=== PATIENT | male | born 1980 | race Caucasian/White ===

== ENCOUNTER 2016-09-03 18:30 | Inpatient (IN) | payer OTHER ==
[~2016-09-03] VITALS: Ht 172.7 cm; Wt 80.9 kg
--- NOTE | 2016-09-08 14:16 | CONS ---
DATE OF ADMISSION: 09/10/2016 DATE OF CONSULTATION: TYPE OF CONSULTATION: Preoperative internal medicine consultation. REASON FOR ADMISSION: He is being admitted on 09/10/[address] Marti for planned left-sided L5- S1 microdiskectomy. HISTORY OF PRESENT ILLNESS: This is an otherwise healthy 36-year-old gentleman who has been having a several year history of left-sided sciatica and ultimately is to undergo definitive surgery with Archie Marti for planned left-sided L5-S1 microdiskectomy. For the details of his spine history, please see the full evaluation per Dr. Marti. Medically th e patient denies any significant past medical history, no history of hypertension, diabetes, asthma, hepatitis, or any cardiopulmonary disease. He has had no hospitalizations, no recent fevers, chill s or sweats. He is a former smoker but it has been greater than 3 years since his last cigarette. Erick hardy feels well. PAST MEDICAL HISTORY: Please see full dictated problem list. ALLERGIES: HE HAD A REACTION TO ORAL STEROIDS. HABITS: Tobacco: None. Alcohol: None. CURRENT MEDICATIONS: Percocet 5/325 1 p.o. q.6h. p.r.n. REVIEW OF SYSTEMS: Entirely unremarkable as noted above. PHYSICAL EXAMINATION: GENERAL: Fit-appearing gentleman in no acute distress. VITAL SIGNS: Afebrile, blood pressure 124/78, heart rate 72 and regular, respirations are 12 and un labored. SKIN: No rash. HEAD: Normocephalic, atraumatic. EYES: Pupils are equal, round, reactive. Extraocular movements are full. Sclerae are anicteric. PHARYNX: No lesions. NECK: JVP is not distended. No adenopathy or thyromegaly. Carotids are 2+. BACK: No CVAT. LUNGS: Clear. HEART: S1, S2, regular rate and rhythm, no murmurs. GASTROINTESTINAL: The abdomen is soft and nontender. There is no organomegaly or masses. EXTREMITIES: No cyanosis, clubbing or edema. Distal pulses are intact. LABORATORY DATA: See enclosed. PROBLEM LIST: 1. Sciatica, left side for planned L5-S1 microdiskectomy. 2. Remote history of tobacco use, asymptomatic. RECOMMENDATIONS: The patient is medically cleared for his planned surgery. Dictated By: KARLA GARY MD MM/NTS Conf#: [id number] DID#: [id number]
[2016-09-09 10:57] VITALS: BMI 27.8
[2016-09-10] VITALS (33 sets, daily range): BP systolic 104–146; BP diastolic 56–94; PULSE 72–108; RESP 8–20; Ht 172.7 cm; Wt 80.9 kg
[2016-09-10] MEDS ORDERED: CEFAZOLIN 2 GM/50 ML (PMX) 50 ML IVPB ONE (05:00)
[2016-09-10] MEDS ORDERED: ROCURONIUM 50 MG INJ ONE (06:36)
[2016-09-10] MEDS ORDERED: PROPOFOL 20 ML ONE (06:36)
[2016-09-10] MEDS ORDERED: FENTAnyl 50 MCG/ML VIAL ONE (06:36)
[2016-09-10] MEDS ORDERED: SUCCINYLCHOLINE CHLORIDE 100 MG/5 ML SYG IV ONE (06:36)
[2016-09-10] MEDS ORDERED: ONDANSETRON 4 MG INJ ONE (06:36)
--- NOTE | 2016-09-10 06:45 | HPN ---
Date/Time of Note Date/Time of Note DATE: 09/10/16 TIME: 06:45 Interval H&P Admission Note Pt. seen H&P reviewed: No system changes JAMES STOKES MD September 10, 2016 06:45
[2016-09-10] MEDS ORDERED: POLYMYXIN/BACITRACIN 1L IRRIG ONE (06:55)
[2016-09-10] MEDS ORDERED: THROMBIN 5000 UNIT VIAL ONE (06:55)
[2016-09-10] MEDS ORDERED: GELATIN SIZE 100 SPONGE ONE (06:55)
[2016-09-10] MEDS ORDERED: BUPIVACAINE 0.25% (MPF) 10 ML 10 ML VIAL ONE (06:55)
[2016-09-10] MEDS ORDERED: hydrALAzine 20 MG INJ IV PRN (08:00)
[2016-09-10] MEDS ORDERED: ONDANSETRON 4 MG INJ IV PRN ×2 (08:00→09:00)
[2016-09-10] MEDS ORDERED: MEPERIDINE 25 MG INJ IV PRN (08:00)
[2016-09-10] MEDS ORDERED: HYDROmorphONE (0.2 MG/ML) 10ML SYG IV PRN ×2 (08:00)
[2016-09-10] MEDS ORDERED: LABETALOL HCL 20MG INJ IV PRN (08:00)
[2016-09-10] MEDS ORDERED: FENTAnyl 50 MCG/ML VIAL IV PRN (08:00)
[2016-09-10] MEDS: LACTATED RINGER'S 1,000 ML IV* SCH ×3 (08:38→08:40)
--- NOTE | 2016-09-10 08:44 | OPR ---
Date/Time of Note Date/Time of Note DATE: 09/10/16 TIME: 08:41 Operative Report Preoperative Diagnosis Herniated disc L5-S1 on the left Postoperative Diagnosis Same Operation Performed Lumbar hemilaminotomy L5 on the left Lumbar microdiscectomy L5-S1 the left Medial facetectomy and foraminotomy L5-S1 on the left Cosmetic wound closure (2.6 cm) Lateral localizing lumbar radiographs (2) Intraoperative nerve monitoring (60 minutes) Surgeon: JAMES STOKES MD state tested nursing assistant: R[employer] PA[employer]ING Anesthesia: general Anesthesiologist: MELVINA CUEVAS MD Estimated Blood Loss: 0 - 10 ml's Specimens Disc material L5-S1 Tubes/Drains 2 medium Hemovac drains employed Complications: None Pt Condition Post Procedure: stable Disposition: PACU Operative\Procedure Findings A moderate left paracentral herniation at L5-S1 was confirmed. JAMES STOKES MD September 10, 2016 08:44
[2016-09-10] MEDS: FENTAnyl 50 MCG/ML VIAL IV PRN ×2 (08:49→08:55)
[2016-09-10] MEDS: HYDROmorphONE (0.2 MG/ML) 10ML SYG IV PRN ×2 (08:54→09:22)
[2016-09-10] MEDS ORDERED: ACETAMINOPHEN 325 MG TAB PO PRN (09:00)
[2016-09-10] MEDS ORDERED: DIAZEPAM 5 MG TAB PO PRN (09:00)
[2016-09-10] MEDS ORDERED: CEPASTAT LOZENGE MT PRN (09:00)
[2016-09-10] MEDS ORDERED: TRIMETHOBENZAMIDE 100 MG/ML VIAL IM PRN (09:00)
[2016-09-10] MEDS ORDERED: DIPHENHYDRAMINE 50 MG CAP PO PRN (09:00)
[2016-09-10] MEDS ORDERED: HYDROCODONE/APAP (5/325) TAB PO PRN (09:00)
[2016-09-10] MEDS ORDERED: DIAZEPAM 5 MG/ML SYG IM PRN (09:00)
[2016-09-10] MEDS ORDERED: NACL 0.9% 3 ML SYG IV SCH (09:00)
[2016-09-10] MEDS ORDERED: PROCHLORPERAZINE 10 MG TAB PO PRN (09:00)
[2016-09-10] MEDS ORDERED: AL HYDROX/MG HYDROX/SIMETH 30 ML CUP PO PRN (09:00)
[2016-09-10] MEDS ORDERED: ZOLPIDEM 5 MG TAB PO PRN (09:00)
[2016-09-10] MEDS ORDERED: BETHANECHOL 25 MG TAB PO PRN (09:00)
[2016-09-10] MEDS ORDERED: NALOXONE (0.4 MG/ML) INJ IV PRN (09:00)
[2016-09-10] MEDS: HYDROmorphONE 0.2 MG/ML PCA IV SCH (09:14)
--- NOTE | 2016-09-10 09:57 | RADRPT ---
PROCEDURE: Intraoperative XR. CLINICAL INDICATION: Intraoperative radiograph during lumbar microdiskectomy.. TECHNIQUE: Spot intraoperative lateral lumbar x-ray image was provided. The images were reviewed on a high-resolution PACS workstation. COMPARISON: None available FINDINGS: Spot intraoperative lateral lumbar view were provided during lumbar microdiskectomy. The images dem onstrate metallic probe at the level of L4-5. IMPRESSION: 1. Spot intraoperative lateral lumbar view during lumbar microdiskectomy were provided. 2. Please see operative report of the same day for further information. RPTAT: DD .Patrick Orozco MD, Date Time Electronically viewed and signed by .Patrick Orozco MD, on 09/10/2016 09:57 .S/
--- NOTE | 2016-09-10 09:58 | RADRPT ---
PROCEDURE: Intraoperative XR. CLINICAL INDICATION: Intraoperative radiograph during lumbar microdiskectomy. TECHNIQUE: Spot intraoperative lateral lumbar x-ray image was provided. The images were reviewed on a high-resolution PACS workstation. COMPARISON: None available FINDINGS: Spot intraoperative lateral lumbar view were provided during lumbar microdiskectomy. The images dem onstrate instrumentation at the level of L5-S1. There are mild anterior osteophytes L5-S1 with mild disc-space narrowing. IMPRESSION: 1. Spot intraoperative lateral lumbar view during lumbar microdiskectomy were provided. 2. Please see operative report of the same day for further information. ARPTAT: DD .Patrick Orozco MD, MD Date Time Electronically viewed and signed by .Patrick Orozco MD, on 09/10/2016 09:58 .S/
--- NOTE | 2016-09-10 10:28 | OPR ---
DATE OF OPERATION: 09/10/2016 PREOPERATIVE DIAGNOSIS: Herniated disk, L5-S1 on the left. POSTOPERATIVE DIAGNOSIS: Herniated disk, L5-S1 on the left. OPERATION PERFORMED: 1. Left hemilaminotomy, L5. 2. Microdiskectomy, L5-S1 on the left. 3. Medial facetectomy and foraminotomy, L5-S1 on the left. 4. Cosmetic wound closure (2.6 cm). 5. Lateral localized lumbar radiographs (2). 6. Intraoperative nerve monitoring (60 minutes). SURGEON: Alfonso Marti MD TRUCK PACKER: YANG Sanchez ANESTHESIA: General endotracheal. ANESTHESIOLOGIST: Constantino Palma MD ESTIMATED BLOOD LOSS: 10 mL-none replaced. DRAINS: Two medium Hemovac drains employed. COMPLICATIONS: None. PERTINENT HISTORY AND PHYSICAL: This is a 36-year-old male who sustained an injury to his back in t he course of his employment on 03/01/2013. He has had extensive care since that time, has remained symptomatic with back and left leg pain which has been unrelieved by conservative management. He daniel s undergone a number of diagnostic studies including an MRI of the lumbar spine, which demonstrated herniation of the L5-S1 disk centrally and to the left. [facility], who elected to proceed with surgery. OPERATIVE FINDINGS AT SURGERY: A herniation of the L5-S1 disk on the left was confirmed. The basel ine intraoperative nerve monitoring revealed a decrease in the left S1 potential of 40%. This retur jemal to normal at the completion of surgery. OPERATIVE PROCEDURE: With the patient in supine position after satisfactory induction of general en dotracheal anesthesia by Dr. Palma, the patient was turned to the prone kneeling position on the [facility] frame. All pressure points were carefully padded. Back was prepped and draped in usual ster ile fashion. Athrombic pumps were applied to the legs below the knees to prevent venous stasis duri ng and after the procedure. Two spinal needles were placed next to what was felt to be the L4 and L 5 spinous processes, lateral roentgenogram was taken which confirmed anatomic localization. A 2.6 c m incision then carried out midline over the spinous process of L5 after skin was infiltrated with 0 .25% Marcaine without epinephrine for postoperative analgesia. Superficial retractors were placed a nd hemostasis secured with electrocautery. Throughout the procedure, copious amounts of antibacteri al irrigating solution were used to periodically irrigate the wound. The fascia was incised in midl ine with a hot knife and unilateral subperiosteal dissection carried out at L5 on the left. Deep re tractors were placed and deep hemostasis secured with electrocautery. A second intraoperative radio graph was taken with deep retractor at what was felt to be the L5-S1 interspace, and this was confir med with second x-ray. A left hemilaminotomy at L5 was then carried out using Leksell rongeur, Banks deepti punches and curettes. Ligamentum flavum was incised with sharp dissection. The operating micr oscope was then moved into place. A medial facetectomy and foraminotomy was accomplished using smal l hand osteotome, mallet, Kerrison punches and curettes. The S1 root was mobilized medially and pro tected with Archie'Trico nerve retractor using microdissection technique. This revealed a herniation of the L5-S1 disk on the left. A 15 blade knife used to cut a rectangular window in the annulus and p osterior longitudinal ligament and multiple degenerative disk fragments were harvested with pituitar y rongeurs and sent to laboratory for pathologic study. Additional fragments were harvested using E pstein curettes. A thorough search of the floor of the canal was made with an arthroscopic probe. No additional fragments were encountered. The epidural hemostasis was secured with bipolar electroc autery on low setting. The anesthesiologist was asked to perform a Valsalva maneuver for 40 mmHg, n o spinal fluid leak was noted. The wound was then closed in layers over 2 medium Hemovac drains, on e below the fascia and one above the fascia using #1 Vicryl [id number] approximating sutures in deep paralumbar musculature and deep fascia of back, 2-0 Vicryl subcutaneous approximating sutures in subcu tissue, and a 4-0 Vicryl subcuticular cosmetic closing suture on the skin. Dermabond and s terile compressive dressings were applied. Patient having tolerated the procedure well was then tur jemal to supine position onto his bed and extubated by Dr. Palma. He was transported to [facility] in satisfactory condition. At the conclusion of procedure, sponge, instrument, and needle counts were all correct. NEED FOR DRUG SAFETY DATA MANAGEMENT SPECIALIST: During this spinal surgical procedure, my it assistant was used to retrac t and protect the spinal nerves and dural sac. My it assistant also employed the suction catheters to e vacuate blood from the surgical field to improve visualization of the neural structures. The assista nt was medically necessary to facilitate the completion of the surgery in a safe and expeditious man ner. [facility] regulations, as well as hospital bylaws, preclude the use of non-licensed [facility] care personnel such as operating room technicians, to perform these functions. Throughout the procedure, neural monitoring was carried out by [employer] including EMG, SSEP and MEP monitoring of the L3, L4, L5 and S1 nerve roots bilaterally along with s ward cord potentials. These were interpreted by neurologist employed by [employer]. Dictated By: ALFONSO MARTI MD TM/NTS Conf#: [id number] DID#: [id number] CC: BAKARI HARRELL MD;*End*
--- NOTE | 2016-09-10 10:47 | CONS ---
DATE OF ADMISSION: 09/10/2016 DATE OF CONSULTATION: 09/10/2016 Thank you very much, Dr. Marti, for allowing me to evaluate the above patient who just underwent lumbar back surgery. HISTORICAL EVENTS: Because of unrelenting low back pain the patient elected to proceed with your bryan rgical intervention, having undergone a L5-S1 microdiskectomy. In recovery, he is comfortable witho ut cough, wheezing, shortness of breath. PAST MEDICAL HISTORY: Unremarkable. FAMILY HISTORY: Noncontributory. SOCIAL HISTORY: He is a nonsmoker and does not drink. ALLERGIES: ? steroids. PHYSICAL EXAMINATION: GENERAL: [place] male in no acute distress. VITAL SIGNS: BP 122/80, pulse 70, respirations are 20, he was afebrile. EYES: Extraocular muscles were full. NOSE, MOUTH, AND THROAT: Normal. NECK: Supple. There was no jugular venous distention, thyroid enlargement or adenopathy. LUNGS: Clear. HEART: Rhythm regular. ABDOMEN: Nontender. EXTREMITIES: No edema. NEUROLOGIC: No lateralizing motor weakness. IMPRESSION: 1. Stable postop lumbar back surgery. 2. We will evaluate daily for signs and symptoms of thromboembolic disease. Dictated By: MELVINA GOLDEN/MIGUEL Conf#: [id number] DID#: [id number]
[2016-09-10] MEDS ORDERED: CEFAZOLIN 1 GM/50 ML (PMX) 50 ML IVPB SCH (12:00)
[2016-09-10] MEDS: DEXTROSE 5%-0.45% NACL 1,000 ML IV SCH ×2 (14:18→17:45)
[2016-09-10] MEDS: CEFAZOLIN 1 GM/50 ML (PMX) 50 ML IVPB SCH ×2 (14:33→20:19)
[2016-09-10] MEDS: RANITIDINE 150 MG TAB PO SCH (20:19)
[2016-09-11] MEDS: DEXTROSE 5%-0.45% NACL 1,000 ML IV SCH ×2 (01:40→14:44)
[2016-09-11] MEDS: HYDROmorphONE 0.2 MG/ML PCA IV SCH (01:52)
[2016-09-11] MEDS: CEFAZOLIN 1 GM/50 ML (PMX) 50 ML IVPB SCH ×2 (02:05→08:43)
[2016-09-11 05:44] VITALS: BP 119/72; PULSE 81
[2016-09-11 05:51] LABS: HEMATOCRIT 40.5 % (42.0-52.0)
[2016-09-11 05:57] LABS: POTASSIUM 3.5 mmol/L (3.5-5.1)
[2016-09-11 06:00] LABS: CREATININE 0.64 mg/dl (0.61-1.24)
--- NOTE | 2016-09-11 06:59 | PN ---
Date/Time of Note Date/Time of Note DATE: 09/11/16 TIME: 06:58 Assessment/Plan Lines/Catheters IV [facility] Saline Lock Subjective 24 Hr Interval Summary The patient is postop day #1 following a microdiscectomy at L5-S1 on the left. He is resting comfortably. Neurovascular structures are intact distally. His a.m. labs are unremarkable. His Hemovac drainage is minimal and his Hemovac was discontinued. The wound is clean and dry and was redressed. He will be mobilized as tolerated with physical therapy, and will be discharged home when cleared by physical therapy. Discharge precautions and instructions have been given. Exam/Review of Systems Vital Signs Vitals Vital Signs Date Time Temp Pulse Resp B/P Pulse Ox O2 Delivery O2 Flow Rate FiO2 09/11/16 05:44 98.7 81 119/72 96 Nasal Cannula 2.0 09/11/16 05:36 18 Intake and Output 09/10/16 09/10/16 09/11/16 15:00 23:00 07:00 Intake Total 800 ml 930 ml 2240 ml Output Total 15 ml 660 ml 1507 ml Balance 785 ml 270 ml 733 ml Results Result Diagram: 09/11/16 0500 09/11/16 0500 JAMES STOKES MD September 11, 2016 06:59
[2016-09-11 07:35] VITALS: BP 113/60; RESP 20
[2016-09-11] MEDS ORDERED: BETHANECHOL 25 MG TAB PO PRN (08:00)
--- NOTE | 2016-09-11 08:16 | CONS ---
Date/Time of Note Date/Time of Note DATE: 09/11/16 TIME: 08:12 Assessment/Plan Assessment/Plan Problems: (1) Sciatica Comment: better post op, but still some discomfort (2) S/P lumbar microdiscectomy Comment: is now POD #1 s/p microdiscectomy L... still on IV analgesia... mobilize today w PT.... med stable Consultation Date/Type/Reason Admit Date/Time September 10, 2016 at 05:27 Initial Consult Date Type of Consultation: im 24 HR Interval Summary Free Text/Dictation feels well...with expected post op pain, on the MARINE RIGGER... no cp or sob... no fevers Exam/Review of Systems Vital Signs Vitals Vital Signs Date Time Temp Pulse Resp B/P Pulse Ox O2 Delivery O2 Flow Rate FiO2 09/11/16 07:35 98.4 88 20 113/60 96 09/11/16 05:44 Nasal Cannula 2.0 Intake and Output 09/10/16 09/10/16 09/11/16 15:00 23:00 07:00 Intake Total 800 ml 930 ml 2240 ml Output Total 15 ml 660 ml 1507 ml Balance 785 ml 270 ml 733 ml Exam Constitutional: alert, oriented Psych: no complaints Neck: supple Respiratory: clear to auscultation Cardiovascular: regular rate and rhythm Gastrointestinal: nl liver, spleen, soft Extremities: normal pulses Results Result Diagram: 09/11/16 0500 09/11/16 0500 Results 24 hrs Laboratory Tests Test 09/11/16 05:00 Hemoglobin 14.0 Hematocrit 40.5 L Sodium Level 140 Potassium Level 3.5 Chloride Level 102 Carbon Dioxide Level 27 Anion Gap 15 Blood Urea Nitrogen 9 Creatinine 0.64 Glucose Level 106 Calcium Level 8.0 L Medications Medications Current Medications Lactated Ringer's 1,000 ml @ 25 mls/hr Q24H IV* Last administered on 09/10/16 08:40; Start 09/10/16 at 05:00; Stop 09/11/16 at 20:59 Dextrose/Sodium Chloride (D5-1/2ns) 1,000 ml @ 100 mls/hr Q10H IV Last administered on 09/11/16 01:40; Admin Dose 100 MLS/HR; Start 09/10/16 at 08:44 Acetaminophen/ Hydrocodone Bitart (Fontana (5/325)) 1 tab Q4H PRN PO PAIN LEVEL 1 -5; Start 09/10/16 at 09:00 Acetaminophen/ Hydrocodone Bitart (Fontana (5/325)) 2 tab Q4H PRN PO PAIN LEVEL 6 -10; Start 09/10/16 at 09:00 Zolpidem Tartrate (Ambien) 5 mg HS PRN PO INSOMNIA; Start 09/10/16 at 09:00 Prochlorperazine (Compazine) 10 mg Q4H PRN PO NAUSEA AND/OR VOMITING; Start 09/10/16 at 09:00 Trimethobenzamide HCl (Tigan) 200 mg Q4H PRN IM NAUSEA AND/OR VOMITING; Start 09/10/16 at 09:00 Ondansetron HCl (Zofran Inj) 4 mg Q6H PRN IV NAUSEA AND/OR VOMITING Last administered on 09/10/16 17:57; Admin Dose 4 MG; Start 09/10/16 at 09:00 Al Hydrox/Mg Hydrox/Simethicone (Mag-Al Plus) 15 ml Q4H PRN PO CONSTIPATION; Start 09/10/16 at 09:00 Docusate Sodium (Colace) 100 mg BID PO ; Start 09/11/16 at 09:00 Acetaminophen (Tylenol Tab) 650 mg Q4H PRN PO TEMP GREATER THAN 101F OR ONEAL Last administered on 09/11/16 02:03; Admin Dose 650 MG; Start 09/10/16 at 09:00 Ascorbic Acid (Vitamin C) 1,000 mg BID PO ; Start 09/11/16 at 09:00 Ferrous Sulfate (Ferrous Sulfate (Ec)) 325 mg TID PO ; Start 09/11/16 at 09:00 Ranitidine HCl (Zantac) 150 mg BID PO Last administered on 09/10/16 20:19; Admin Dose 150 MG; Start 09/10/16 at 21:00 Diazepam (Valium) 5 mg Q4H PRN PO MUSCLE SPASMS; Start 09/10/16 at 09:00 Diazepam (Valium) 5 mg Q4H PRN IM MUSCLE SPASMS; Start 09/10/16 at 09:00 Phenol (Cepastat Lozenge) 1 lozenge PRN PRN MT SORE THROAT Last administered on 09/10/16 20:19; Admin Dose 1 LOZENGE; Start 09/10/16 at 09:00 Diphenhydramine HCl (Benadryl) 50 mg Q6H PRN PO PRURITUS; Start 09/10/16 at 09: 00 Hydromorphone HCl (Dilaudid MARINE RIGGER) Q4PCA IV Last administered on 09/11/16 01:52 ; Admin Dose 6 MG; Start 09/10/16 at 09:00 Naloxone HCl 0.2 mg 0.2 mg Q2M PRN IV RR 8 BREATHS/MIN OR LESS; Start 09/10/16 at 09:00 Cefazolin Sodium (Ancef 1 Gm/50 ml (Pmx)) 50 ml @ 100 mls/hr Q6H IVPB Last administered on 09/11/16 02:05; Admin Dose 100 MLS/HR; Start 09/10/16 at 15:00; Stop 09/11/16 at 09:29 Bethanechol Chloride (Urecholine) 25 mg PRN PRN PO UNABLE TO VOID; Start at 08:00 KARLA GARY MD September 11, 2016 08:15
[2016-09-11] MEDS: FERROUS SULFATE (EC) 325 MG TAB PO SCH ×2 (08:43→12:56)
[2016-09-11] MEDS: RANITIDINE 150 MG TAB PO SCH (08:43)
[2016-09-11] MEDS: HYDROCODONE/APAP (5/325) TAB PO PRN ×3 (08:49→17:20)
[2016-09-11] MEDS ORDERED: ASCORBIC ACID 500 MG TAB PO SCH (09:00)
[2016-09-11] MEDS ORDERED: DOCUSATE SODIUM 100 MG CAP PO SCH (09:00)
--- NOTE | 2016-09-15 09:30 | DS ---
Date/Time of Note Date/Time of Note DATE: 09/15/16 TIME: 09:29 Discharge Summary Admission/Discharge Info Admit Date/Time September 10, 2016 at 05:27 Discharge Date/Time September 11, 2016 at 18:15 Final Diagnosis Herniated disk, L5-S1 on the left Patient Condition: Fair Hospital Course Patient did well postoperatively. His pain was well controlled. He tolerated activity well. Diet was advanced as tolerated. He was discharged home in good condition on postop day #1 Home Meds No Active Prescriptions or Reported Meds Follow-up Plan Follow-up with Dr. Marti in 1 to weeks DARIN PEARL September 15, 2016 09:30
== END 2016-09-11 18:15 | disposition home or self-care (01) | DRG 520 ==
LOC: REC 09-10 05:27 → EDSTATUS 09-10 07:00 → MS1 09-10 13:40
PROVIDERS: ADMIT Orthopaedic Surgery; ATTEND Orthopaedic Surgery
PROC: 00NY0ZZ Release Lumbar Spinal Cord, Open Approach (ICD-10-PCS; 2016-09-10)
PROC: 4A11X4G Monitoring of Peripheral Nervous Electrical Activity, Intraoperative, External Approach (ICD-10-PCS; 2016-09-10)
PROC: 0ST40ZZ Resection of Lumbosacral Disc, Open Approach (ICD-10-PCS; principal; 2016-09-10 07:00)
DX: M51.27 Other intervertebral disc displacement, lumbosacral region (principal); E11.9 Type 2 diabetes mellitus without complications; Z87.891 Personal history of nicotine dependence
CPT/HCPCS: 72020; 80048; 82962; 85014; 85018; 86850; 86900; 86901; 86920; 97116; 97162; 97530; J0330; J0690; J1170; J2175; J2405; J3010; J7042; J7120

== ENCOUNTER → 2016-09-25 | Outpatient (CLI) | payer OTHER ==
[2016-09-25 12:12] LABS: ADD UMIC NO; URINE BILIRUBIN (Dip) NEGATIVE (NEGATIVE); URINE BLOOD (Dip) NEGATIVE (NEGATIVE); URINE COLOR LT. YELLOW (YELLOW); URINE GLUCOSE (Dip) NEGATIVE (NEGATIVE); URINE KETONES (Dip) NEGATIVE (NEGATIVE); URINE LEUKOCYTE ESTERASE (Dip) NEGATIVE (NEGATIVE); URINE NITRITE (Dip) NEGATIVE (NEGATIVE); URINE TOTAL PROTEIN (Dip) NEGATIVE (NEGATIVE); URINE UROBILINOGEN (Dip) 0.2 E.U./dL (0.1-1.0)
== END | disposition home or self-care (01) ==
LOC: LAB 11:35
PROVIDERS: ATTEND Physician Assistant
DX: S33.5XXD Sprain of ligaments of lumbar spine, subsequent encounter (principal)
CPT/HCPCS: 81003